=== PATIENT | male | born 1965 | race American Indian/Alaskan Native ===

== ENCOUNTER 2021-02-10 22:15 | Observation (INO) | payer OTHER ==
--- NOTE | 2021-02-10 22:21 | Emergency Department Report ---
- General Chief complaint: Weakness Stated complaint: WEAKNESS PUI?: No Time Seen by Provider: 02/10/21 22:16 Source: patient, RN/MD, EMS, RN notes reviewed, old records reviewed Mode of arrival: Stretcher Limitations: Physical Limitation - History of Present Illness Initial comments: Patient is a 56-year-old male who presents emergency room with complaints of generalized weakness, difficulty walking, changes in balance, slurred speech. Patient states his symptoms started at 630. Patient states he was at a football game when this all started. Patient diagnosis diabetes. Patient states he went to the [place] urgent care and was being worked up there. Patient states he did a CAT scan and then he was sent over here. patient states he does not know what the results of the CAT scan are. Patient denies chest pain. Patient denies shortness of breath. Patient states his symptoms are continuous. Patient states he is becoming more more difficult to talk. Patient denies headache. Patient denies blurry vision. Patient denies fall. Patient denies trauma. Patient denies loss of consciousness. Patient denies syncope. Patient denies fever and chills. Patient denies neck stiffness. Patient denies recent travel. Patient denies recent international travel. Patient denies exposure to the novel coronavirus. Patient denies sick contacts. Patient denies fever and chills. Patient denies cough. Patient denies diarrhea. Patient denies coming in contact with anybody with symptoms of the novel coronavirus. Report received from EMS. EMS states that the patient was at the [facility] and they called for emergent transport because they did a CAT scan and they were not able to read it. Last known well time 6:30 PM [place]. Radio report received from EMS prior to arrival. A code stroke was called immediately after the radio report was received and prior to EMS arrival.. MD Complaint: generalized weakness, difficulty walking -: Sudden Location: generalized Severity: severe Quality: constant Consistency: constant Improves with: rest Worsens with: movement Associated Symptoms: denies: chest pain, confusion, dark stools, diaphoresis, dysuria, easy bruising, fever/chills, headaches, loss of appetite, nausea/vomiting, myalgias, rash, shortness of breath, syncope - Related Data Allergies Allergy/AdvReac Type Severity Reaction Status Date / Time No Known Allergies Allergy Verified 02/10/21 22:21 ED Review of Systems ROS: Stated complaint: WEAKNESS Other details as noted in HPI Constitutional: denies: chills, fever Eyes: denies: eye pain, eye discharge, vision change ENT: denies: ear pain, throat pain Respiratory: denies: cough, shortness of breath, wheezing Cardiovascular: denies: chest pain, palpitations Endocrine: no symptoms reported Gastrointestinal: denies: abdominal pain, nausea, diarrhea Genitourinary: denies: urgency, dysuria Musculoskeletal: denies: back pain, joint swelling, arthralgia Skin: denies: rash, lesions Neurological: as per HPI, weakness. denies: headache, paresthesias Psychiatric: denies: anxiety, depression Hematological/Lymphatic: denies: easy bleeding, easy bruising ED Past Medical Hx - Past Medical History Previous Medical History?: Yes Hx Hypertension: Yes Hx Diabetes: Yes Hx GERD: Yes Hx Seizures: Yes Additional medical history: History of alcohol abuse but in remission, esophageal varices, gallstones, history of GI bleed, hyperlipidemia, iron deficiency anemia, pancreatitis, seizure disorder, - Surgical History Past Surgical History?: No - Family History Family history: no significant - Social History Smoking Status: Never Smoker Substance Use Type: None ED Physical Exam - General Limitations: Physical Limitation General appearance: alert, in no apparent distress - Head Head exam: Present: atraumatic, normocephalic - Eye Eye exam: Present: normal appearance, PERRL Pupils: Present: normal accommodation - ENT ENT exam: Present: mucous membranes moist - Neck Neck exam: Present: normal inspection - Respiratory Respiratory exam: Present: normal lung sounds bilaterally. Absent: respiratory distress, wheezes, rales - Cardiovascular Cardiovascular Exam: Present: regular rate, normal rhythm. Absent: systolic murmur, diastolic murmur, rubs, gallop - GI/Abdominal GI/Abdominal exam: Present: soft, normal bowel sounds - Rectal Rectal exam: Present: deferred - Extremities Exam Extremities exam: Present: normal inspection - Back Exam Back exam: Present: normal inspection - Neurological Exam Neurological exam: Present: alert, oriented X3 - Psychiatric Psychiatric exam: Present: normal affect, normal mood - Skin Skin exam: Present: warm, dry, intact, normal color. Absent: rash - Assessment Assessment Interval: Baseline - Level of Consciousness 1a. Level of Consciousness: alert/keenly responsive - LOC Questions 1b. LOC Questions: answers both correctly - LOC Command 1c. LOC Commands: performs tasks correctly - Best Gaze 2. Best Gaze: normal - Visual 3. Visual: no visual loss - Facial Palsy 4. Facial Palsy: minor paralysis - Motor Arm 5a. Motor Arm Left: no drift 5b. Motor Arm Right: no drift - Motor Leg 6a. Motor Leg Left: drift 6b. Motor Leg Right: drift - Limb Ataxia 7. Limb Ataxia: absent - Sensory 8. Sensory: normal - Best Language 9. Best Language: no aphasia - Dysarthria 10. Dysarthria: mild/moderate dysarthria - Extinction and Inattention 11. Extinction/Inattention: no abnormality - Scoring Total Score: 4 Stroke Severity: Minor Stroke ED Course Vital Signs 02/10/21 02/10/21 02/10/21 22:21 22:46 23:00 Temperature 97.8 F Pulse Rate 77 73 72 Respiratory 18 17 14 Rate Blood Pressure 139/87 134/83 Blood Pressure 137/91 [Left] O2 Sat by Pulse 100 100 98 Oximetry 02/10/21 02/10/21 02/10/21 23:16 23:30 23:45 Temperature Pulse Rate 72 71 Respiratory 13 14 16 Rate Blood Pressure 124/79 119/77 Blood Pressure [Left] O2 Sat by Pulse 99 100 100 Oximetry 02/10/21 02/11/21 02/11/21 23:46 00:00 00:16 Temperature Pulse Rate 73 73 70 Respiratory 16 12 13 Rate Blood Pressure 116/71 112/71 119/75 Blood Pressure [Left] O2 Sat by Pulse 100 100 100 Oximetry 02/11/21 02/11/21 02/11/21 00:30 00:46 01:00 Temperature Pulse Rate 72 82 72 Respiratory 15 25 H 18 Rate Blood Pressure 120/73 134/78 133/105 Blood Pressure [Left] O2 Sat by Pulse 100 99 100 Oximetry 02/11/21 02/11/21 02/11/21 01:16 01:30 01:46 Temperature Pulse Rate 71 71 72 Respiratory 14 14 16 Rate Blood Pressure 135/88 134/82 139/82 Blood Pressure [Left] O2 Sat by Pulse 99 100 100 Oximetry 02/11/21 02/11/21 02/11/21 02:00 02:16 02:30 Temperature Pulse Rate 72 71 71 Respiratory 16 13 12 Rate Blood Pressure 139/87 135/82 132/81 Blood Pressure [Left] O2 Sat by Pulse 100 100 100 Oximetry 02/11/21 02/11/21 02/11/21 02:46 03:00 03:16 Temperature Pulse Rate 70 73 72 Respiratory 12 12 12 Rate Blood Pressure 126/82 128/80 123/77 Blood Pressure [Left] O2 Sat by Pulse 100 100 100 Oximetry - Reevaluation(s) Reevaluation #1: No change in neurologic status. Patient vital signs are reassuring. 02/11/21 00:01 Reevaluation #2: I discussed all results with patient. I discussed plan of care with patient. Patient agrees with plan of care and admission. Patient to be admitted to the hospitalist service. 02/11/21 00:54 - Consultations Consultation #1: I discussed the case with neurology and neurology recommends no TPA. Neurology recommends admission for further stroke work-up and a CTA in the ER. 02/10/21 22:31 Consultation #2: Discussed case with [place] physician, Dr. Mario. Dr. Mario wants the patient admitted here. 02/11/21 00:50 Consultation #3: Hospitalist consulted for admission. Hospitalist to admit patient. 02/11/21 00:53 ED Medical Decision Making - Lab Data Result diagrams: 02/10/21 22:37 02/10/21 22:37 - EKG Data -: EKG Interpreted by [place] EKG shows normal: sinus rhythm, axis, intervals, QRS complexes, ST-T waves Rate: normal - Radiology Data Radiology results: report reviewed, image reviewed CT head/brain wo con INDICATION / CLINICAL INFORMATION: Stroke symptoms. TECHNIQUE: Axial CT imaging of brain was obtained without contrast. Coronal and sagittal reformatted imaging obtained and reviewed. All CT scans at this location are performed using CT dose reduction for ALARA by means of automated exposure control. COMPARISON: None available. FINDINGS: No intracranial hemorrhage, mass, or midline shift is noted. No extra-axial fluid collection or suggestion of acute territorial infarction. Ventricular system and basilar cisterns are unremarkable. No evidence of acute ischemia at this time. Visualized paranasal sinuses and mastoid air cells are well aerated and clear. No acute calvarial abnormality noted. IMPRESSION: 1. No acute intracranial abnormality at this time. Please note that a negative CT does not exclude the possibility of acute CVA and clinical correlation is recommended. CTA HEAD AND NECK WITH CONTRAST HISTORY: Stroke symptoms COMPARISON: None. TECHNIQUE: All CT scans at this location are performed using CT dose reduction for ALARA by means of automated exposure control.. 3-D/MIP reformats postprocessed. Percentage stenosis is determined by direct quantitative measurements of diseased internal carotid artery diameter compared with normal distal internal carotid artery reference segments or by criteria similar to NASCET where applicable. CONTRAST: 100 ml of Omnipaque 350 FINDINGS: CT HEAD: BRAIN / INTRACRANIAL CONTENTS: No acute hemorrhage, mass effect, midline shift, or hydrocephalus. No appreciable acute large territorial or lacunar infarct. ORBITS: No significant abnormality of visualized orbits. SINUSES / MASTOIDS: No significant abnormality of visualized sinuses and mastoid air cells. CTA HEAD: Intracranial vertebral arteries: No significant abnormality. Basilar artery: No significant abnormality. Posterior cerebral arteries: No significant abnormality. Intracranial internal carotid arteries: No significant abnormality. Anterior cerebral arteries: No significant abnormality. Middle cerebral arteries: No significant abnormality. Dural venous sinuses:Not optimally opacified. No significant abnormality. CTA NECK: Aortic arch: No significant abnormality. Cervical vertebral arteries: No significant abnormality. Common carotid arteries: No significant abnormality. Cervical internal carotid arteries: Minimal atherosclerotic plaque without si gnificant stenosis. Additional findings: None. IMPRESSION: 1. No significant stenosis or large vessel occlusion in the neck or intracranial arteries. - Medical Decision Making Patient is a 56-year-old male who presents emergency room with complaints of weakness, slurred speech balance issues. Patient's last known well time was 6:30 PM. Patient had a code stroke initiated prior to arrival. Report received from EMS over the EMS radio and then in person once the EMS arrived. Patient immediately taken to CT scan for CT scan of the head. Patient had a CTA of the head neck immediately. Neurology consulted early. Neurology recommendations were received. Neurology not recommend TPA but recommends a stroke work-up as an inpatient. Patient's CT of the head and a CTA of the head and neck were negative for acute findings. No large vessel occlusions noted. Patient had a EKG which was normal sinus rhythm. I personally reviewed the EKG. I also reviewed the patient's chart that accompany him from the [place] facility. I discussed the case with [place] physician and they recommend admission here. Patient admitted to the hospital service for further evaluation treatment. Critical care time documented due to the multiple reassessments, prolonged time at the bedside, interpretation of diagnostics and labs. - Differential Diagnosis CVA, weakness, electrolyte imbalance, encephalopathy, Critical Care Time: Yes Critical care time in (mins) excluding proc time.: 35 Critical care attestation.: If time is entered above; I have spent that time in minutes in the direct care of this critically ill patient, excluding procedure time. Critical Care Time: 35 minutes ED Disposition Clinical Impression: Slurred speech, Dysarthria, Weakness, Unsteady gait, Alteration in speech, Abnormal blood chemistry Disposition: ADMITTED INPATIENT Is pt being admited?: Yes Does the pt Need Aspirin: No Condition: Critical Referrals: EDDIE MORGAN [Other] - 3-5 Days Time of Disposition: 00:56
--- NOTE | 2021-02-10 22:29 | Emergency Department Report ---
Blank Doc - Documentation Documentation: [facility] Consult Note # Demographics Consult Type: Acute Stroke Level 1 (0-4.5 hrs) Patient Location: Emergency Room First Name: Francisco Last Name: Symone Date of : 1965 Age: 56 Gender: Male Facility: [facility] Time of Initial Page ( Time): 02/10/2021, 22:18 Time of Return Call ( Time): 02/10/2021, 22:18 # HPI History: 56yo M was at a football came, developed slurred speech and generalized weakness. went to a [place] facility and got a CT but results are not known. # Scores Time of exam and NIHSS (): 02/10/2021, 22:20 Level of Consciousness 1a: [0] = Alert; keenly responsive LOC Questions 1b: [0] = Answers both questions correctly LOC Commands 1c: [0] = Performs both tasks correctly Best Gaze 2: [0] = Normal Visual 3: [0] = No visual loss Facial Palsy 4: [0] = Normal symmetrical movements Motor Arm Left 5a: [1] = Drift Motor Arm Right 5b: [1] = Drift Motor Leg Left 6a: [1] = Drift Motor Leg Right 6b: [1] = Drift Limb Ataxia 7: [0] = Absent Sensory 8: [0] = Normal Best Language 9: [0] = No aphasia Dysarthria 10: [1] = Awmy-vm-xwuaybyh dysarthria Extinction and Inattention 11: [0] = No abnormality NIHSS Total: 5 # Exam Mental Status: psychomotor slowing # Assessment Impression: Stroke Mimic # Plan Thrombolytic/Intervention: NOT IV Thrombolysis or IA Intervention candidate Thrombolytic/Intraarterial Exclusion: IV thrombolytic and IA intervention considered but not recommended as this patient's symptoms are not clinically consistent with an assumed diagnosis of stroke Other: I have discussed my recommendations with the referring provider # Logistics Telemedicine: Interactive 2 way audio and visual telecommunication technology was utilized during this visit
--- NOTE | 2021-02-10 22:41 | Cat Scan Report ---
CT head/brain wo con INDICATION / CLINICAL INFORMATION: Stroke symptoms. TECHNIQUE: Axial CT imaging of brain was obtained without contrast. Coronal and sagittal reformatted imaging obt ained and reviewed. All CT scans at this location are performed using CT dose reduction for ALARA by means of automated exposure control. COMPARISON: None available. FINDINGS: No intracranial hemorrhage, mass, or midline shift is noted. No extra-axial fluid collection or sugge stion of acute territorial infarction. Ventricular system and basilar cisterns are unremarkable. No e vidence of acute ischemia at this time. Visualized paranasal sinuses and mastoid air cells are well aerated and clear. No acute calvarial abn ormality noted. IMPRESSION: 1. No acute intracranial abnormality at this time. Please note that a negative CT does not exclude th e possibility of acute CVA and clinical correlation is recommended. A negative CT report was given to Dr. Hanks via telephone by myself at 2134 hours BUSINESS [employer]JECT[employer] DEVELOPER Signer Name: Josie Alarcon MD Signed: 02/10/2021 10:37 PM Workstation Name: [id number]
--- NOTE | 2021-02-10 23:08 | Cat Scan Report ---
CTA HEAD AND NECK WITH CONTRAST HISTORY: Stroke symptoms COMPARISON: None. TECHNIQUE: All CT scans at this location are performed using CT dose reduction for ALARA by means of automated exposure control.. 3-D/MIP reformats postprocessed. Percentage stenosis is determined by d irect quantitative measurements of diseased internal carotid artery diameter compared with normal dis mike internal carotid artery reference segments or by criteria similar to NASCET where applicable. CONTRAST: 100 ml of Omnipaque 350 FINDINGS: CT HEAD: BRAIN / INTRACRANIAL CONTENTS: No acute hemorrhage, mass effect, midline shift, or hydrocephalus. No appreciable acute large territorial or lacunar infarct. ORBITS: No significant abnormality of visualized orbits. SINUSES / MASTOIDS: No significant abnormality of visualized sinuses and mastoid air cells. CTA HEAD: Intracranial vertebral arteries: No significant abnormality. Basilar artery: No significant abnormality. Posterior cerebral arteries: No significant abnormality. Intracranial internal carotid arteries: No significant abnormality. Anterior cerebral arteries: No significant abnormality. Middle cerebral arteries: No significant abnormality. Dural venous sinuses:Not optimally opacified. No significant abnormality. CTA NECK: Aortic arch: No significant abnormality. Cervical vertebral arteries: No significant abnormality. Common carotid arteries: No significant abnormality. Cervical internal carotid arteries: Minimal atherosclerotic plaque without significant stenosis. Additional findings: None. IMPRESSION: 1. No significant stenosis or large vessel occlusion in the neck or intracranial arteries. Signer Name: Justice Soares MD Signed: 02/10/2021 11:04 PM Workstation Name: [id number]
[2021-02-10 23:29] LABS: Basophils % (Auto) 0.9 % (0.0-1.8); Eosinophils # (Auto) 0.1 K/mm3 (0.0-0.4); Eosinophils % (Auto) 1.8 % (0.0-4.3); Hematocrit 39.1 % (35.5-45.6); Hemoglobin 13.3 gm/dl (11.8-15.2); Lymphocytes # (Auto) 1.2 K/mm3 (1.2-5.4); Lymphocytes % (Auto) 32.6 % (13.4-35.0); Mean Corpuscular HGB Conc 34 % (32-34); Mean Corpuscular Volume 92 fl (84-94); Monocytes # (Auto) 0.5 K/mm3 (0.0-0.8); Monocytes % (Auto) 14.1 % (0.0-7.3); Platelet Count 135 K/mm3 (140-440); Red Blood Count 4.23 M/mm3 (3.65-5.03); Red Cell Distribution Width 15.3 % (13.2-15.2)
[2021-02-10 23:36] LABS: Creatine Kinase MB 1.9 ng/mL (0.0-4.0)
[2021-02-10 23:38] LABS: Alanine Aminotransferase 55 units/L (7-56); Albumin 3.5 g/dL (3.9-5); Blood Urea Nitrogen 5 mg/dL (9-20); Calcium 8.6 mg/dL (8.4-10.2); Hemolysis Index 260
[2021-02-10 23:45] LABS: BUN/Creatinine Ratio 10
[2021-02-10 23:47] LABS: INR 1.38 (0.87-1.13)
[2021-02-10 23:48] LABS: Partial Thromboplastin Time 35.7 Sec. (24.2-36.6); Thrombin Time 15.4 Sec. (15.1-19.6)
[2021-02-11 01:55] LABS: Bacteria,Urine 1+ /HPF (Negative); Bilirubin,Urine NEG (Negative); Blood,Urine NEG (Negative); Color,Urine Yellow (Yellow); Mucus,Urine FEW /HPF; Protein,Urine <15 mg/dL mg/dL (Negative)
--- NOTE | 2021-02-11 01:55 | History and Physical Report ---
History of Present Illness Date of examination: 02/11/21 Date of admission: 02/11/21 Chief complaint: Weakness History of present illness: This is a 56-year-old male who is seen in ED at bedside. He presents to emergency room with complaints of generalized weakness, difficulty walking, changes in balance, slurred speech. Patient states he was at a football game whe n this all started. Patient has past medical hx of hypertension and diabetes. Patient states he went to the [place] urgent care and was being worked up there. Patient states he did a CAT scan and then he was sent over here. patient states he does not know what the results of the CAT scan are. Patient denies chest pain. Patient denies shortness of breath. patient appears to have low speech and he said it is becoming more difficult to talk. He denies chest pain, shortness of breath, tobacco use, alcohol use and illicit drug use. Past History Past Medical History: diabetes, hypertension Past Surgical History: Other Social history: full code. denies: smoking, alcohol abuse, prescription drug abuse, IV drug use Family history: diabetes, hypertension Medications and Allergies Allergies Allergy/AdvReac Type Severity Reaction Status Date / Time No Known Allergies Allergy Verified 02/10/21 22:21 Home Medications Medication Instructions Recorded Confirmed Last Taken Type Amoxicillin/K Clav Tab [Augmentin 1 each PO BID 02/11/21 02/11/21 Unknown History 500 MG TAB] Insulin NPH Human Isophane 12 unit SQ BID 02/11/21 02/11/21 Unknown History [Humulin N] Insulin Regular, Human [HumuLIN R] 1,000 unit SQ ACHS 02/11/21 02/11/21 Unknown History Neomycin 500 mg PO BID 02/11/21 02/11/21 Unknown History levETIRAcetam [Keppra TAB] 500 mg PO BID 02/11/21 02/11/21 Unknown History lisinopriL [Lisinopril] 10 mg PO QDAY 02/11/21 02/11/21 Unknown History Review of Systems Constitutional: fatigue, weakness Ears, nose, mouth and throat: no epistaxis, no bleeding gums Cardiovascular: syncope, high blood pressure Respiratory: no congestion, no wheezing Gastrointestinal: no BRBPR, no melena Rectal: no itching, no hemorrhoids Musculoskeletal: muscle weakness Integumentary: dryness Neurological: weakness, syncope, lack of coordination, change in speech, balance difficulties, no head injury, no change in mentation, no confusion Psychiatric: no suicidal ideation, no disorientation, no anhedonia Endocrine: high blood sugars Hematologic/Lymphatic: no easy bruising, no easy bleeding, no lymphadenopathy, no lymphedema Allergic/Immunologic: no urticaria Exam - Constitutional Vitals: Temp Pulse Resp BP Pulse Ox 97.8 F 72 15 120/73 100 02/10/21 22:21 02/11/21 00:30 02/11/21 00:30 02/11/21 00:30 02/11/21 00:30 General appearance: Present: mild distress, well-nourished - EENT Eyes: Present: PERRL ENT: hearing intact, clear oral mucosa - Neck Neck: Present: supple, normal ROM - Respiratory Respiratory effort: normal Respiratory: bilateral: CTA - Cardiovascular Heart Sounds: Present: S1 & S2. Absent: rub, click - Extremities Extremities: pulses symmetrical, No edema Peripheral Pulses: within normal limits - Abdominal General gastrointestinal: Present: soft, non-tender, non-distended, normal bowel sounds Male genitourinary: Present: normal - Integumentary Integumentary: Present: clear, warm, dry - Musculoskeletal Musculoskeletal: strength equal bilaterally, generalized weakness - Psychiatric Psychiatric: appropriate mood/affect, intact judgment & insight, cooperative - Neurologic Neurologic: CNII-XII intact, moves all extremities - Allied Health Allied health notes reviewed: nursing, PT, OT HEART Score - HEART Score Troponin: Troponin T < 0.010 ng/mL (0.00-0.029) 02/10/21 22:37 Results - Labs CBC & Chem 7: 02/10/21 22:37 02/10/21 22:37 Labs: Abnormal lab results 02/10/21 02/10/21 02/10/21 Range/Units 22:37 22:37 22:37 WBC 3.6 L (4.5-11.0) K/mm3 RDW 15.3 H (13.2-15.2) % Plt Count 135 L (140-440) K/mm3 Rock % (Auto) 14.1 H (0.0-7.3) % PT 17.5 H (12.2-14.9) Sec. INR 1.38 H (0.87-1.13) Sodium 133 L (137-145) mmol/L Chloride 96.7 L (98-107) mmol/L BUN 5 L (9-20) mg/dL Creatinine 0.5 L (0.8-1.3) mg/dL Glucose 204 H (75-100) mg/dL Total Bilirubin 2.20 H (0.1-1.2) mg/dL AST 97 H (5-40) units/L Alkaline Phosphatase 180 H (35-129) units/L Total Creatine Kinase 204 H (55-170) units/L Total Protein 8.3 H (6.3-8.2) g/dL Albumin 3.5 L (3.9-5) g/dL Assessment and Plan - Patient Problems (1) Hypertension Current Visit: Yes Status: Acute Plan to address problem: Minotor blood pressure Resume BP med PRN hydralazine (2) Diabetes Current Visit: Yes Status: Acute Plan to address problem: Monitor blood sugar with SSI Check HGA1c Resume home antihyperglycermic (3) TIA (transient ischemic attack) Current Visit: Yes Status: Acute Plan to address problem: CT of the neck, ct of head-done no acute finding Check ECHO (4) Weakness Current Visit: Yes Status: Acute Plan to address problem: ? cause-r/o CVA Patient came with generalized weakness, difficulty walking, changes in balance, slurred speech CT of the head and CTA neck with no acute finding MRI-result pending Neurologist consult (5) Alteration in speech Current Visit: Yes Status: Acute Plan to address problem: Patients speech slow patient reports this is new R/O CVA CT head is negative. MRI ordered. (6) Hyponatremia Current Visit: Yes Status: Acute Plan to address problem: Likely 2/2 to dehydration patient denies alcohol use Gently IV Hydration with normal saline (7) Thrombocytopenia Current Visit: Yes Status: Acute Plan to address problem: Unknown cause-alcohol use/viral infection Bleeding precautions Monitor platelet level (8) Elevated INR Current Visit: Yes Status: Acute Plan to address problem: ? cause patient not on anticoagulation therapy Hold anticoagulant Patient denies alcohol use Will check hepatic profile (9) DVT prophylaxis Current Visit: Yes Status: Acute Plan to address problem: SCD
[2021-02-11] MEDS ORDERED: SENNOSIDES 8.6 MG TAB PO PRN (02:17)
[2021-02-11] MEDS ORDERED: oxyCODONE /ACETAMINOPHEN 5-325MG TAB PO PRN ×2 (02:17→02:24)
[2021-02-11] MEDS ORDERED: MORPHINE 4 MG/1 ML INJ IV PRN (02:17)
[2021-02-11] MEDS ORDERED: ONDANSETRON 4 MG/2 ML INJ IV PRN ×2 (02:17→02:24)
[2021-02-11] MEDS ORDERED: METOCLOPRAMIDE 10 MG/2 ML INJ IV PRN (02:17)
[2021-02-11] MEDS ORDERED: ALUM-MAG HYDROXIDE-SIMETHICONE 200-200-20MG/5ML ORAL LIQD 30 ML PO PRN (02:17)
[2021-02-11] MEDS ORDERED: NALOXONE 0.4 MG/1 ML INJ IV PRN (02:17)
[2021-02-11] MEDS ORDERED: MAGNESIUM HYDROXIDE (MOM) ORAL LIQD UDC PO PRN (02:17)
[2021-02-11] MEDS ORDERED: MORPHINE 2 MG/1 ML INJ IV PRN ×2 (02:17→02:24)
[2021-02-11] MEDS ORDERED: ACETAMINOPHEN 325 MG TAB PO PRN (02:24)
[2021-02-11] MEDS ORDERED: hydrALAZINE 20 MG/1 ML INJ IV PRN (02:55)
[2021-02-11 04:30] LABS: Hepatitis C Virus Antibody Non-Reactive (NonReactive)
[2021-02-11 05:23] LABS: Hepatitis B Surface Antigen Nonreactive (Negative)
[2021-02-11] MEDS: INSULIN NPH, HUMAN 100 UNIT/1 ML SUB-Q SCH ×2 (08:23→17:59)
--- NOTE | 2021-02-11 08:57 | Consultation ---
History of Present Illness Consult date: 02/11/21 Reason for Consult: Weakness generalized acute History of present illness: Weakness History of present illness: This is a 56-year-old male who is seen in ED at bedside. He presents to emergency room with complaints of generalized weakness, difficulty walking according to pt. for the last 3 weeks he noticed at time unsteady gait intermittent ? , changes in balance, slurred speech. Patient states he was at a football game when this all started. Patient has past medical hx of hypertension and diabetes. Patient states he went to the [facility] urgent [facility] and was being worked up there. Patient states he did a CAT scan and then he was sent over here. patient states he does not know what the results of the CAT scan are. Patient denies chest pain. Patient denies shortness of breath. patient appears to have low speech and he said it is becoming more difficult to talk. He denies chest pain, shortness of breath, tobacco use, alcohol use and illicit drug use. Past History Past Medical History: diabetes, hypertension Past Surgical History: Other Social history: full code. denies: smoking, alcohol abuse, prescription drug abuse, IV drug use Family history: diabetes, hypertension Medications and Allergies Allergies Allergy/AdvReac Type Severity Reaction Status Date / Time No Known Allergies Allergy Verified 02/10/21 22:21 Home Medications Medication Instructions Recorded Confirmed Last Taken Type Amoxicillin/K Clav Tab [Augmentin 1 each PO BID 02/11/21 02/11/21 Unknown History 500 MG TAB] Insulin NPH Human Isophane 12 unit SQ BID 02/11/21 02/11/21 Unknown History [Humulin N] Insulin Regular, Human [HumuLIN R] 1,000 unit SQ ACHS 02/11/21 02/11/21 Unknown History Neomycin 500 mg PO BID 02/11/21 02/11/21 Unknown History levETIRAcetam [Keppra TAB] 500 mg PO BID 02/11/21 02/11/21 Unknown History lisinopriL [Lisinopril] 10 mg PO QDAY 02/11/21 02/11/21 Unknown History Review of Systems Constitutional: fatigue, weakness Ears, nose, mouth and throat: no epistaxis, no bleeding gums Cardiovascular: syncope, high blood pressure Respiratory: no congestion, no wheezing Gastrointestinal: no BRBPR, no melena Rectal: no itching, no hemorrhoids Musculoskeletal: muscle weakness Integumentary: dryness Neurological: weakness, syncope, lack of coordination, change in speech, balance difficulties, no head injury, no change in mentation, no confusion Psychiatric: no suicidal ideation, no disorientation, no anhedonia Endocrine: high blood sugars Hematologic/Lymphatic: no easy bruising, no easy bleeding, no lymphadenopathy, no lymphedema Allergic/Immunologic: no urticaria Past History Past Medical History: diabetes, hypertension Past Surgical History: Other Social history: full code. denies: smoking, alcohol abuse, prescription drug abuse, IV drug use Family history: diabetes, hypertension Medications and Allergies Allergies Allergy/AdvReac Type Severity Reaction Status Date / Time No Known Allergies Allergy Verified 02/10/21 22:21 Home Medications Medication Instructions Recorded Confirmed Last Taken Type Amoxicillin/K Clav Tab [Augmentin 1 each PO BID 02/11/21 02/11/21 Unknown History 500 MG TAB] Insulin NPH Human [place] 12 unit SQ BID 02/11/21 02/11/21 Unknown History [Humulin N] Insulin Regular, Human [HumuLIN R] 1,000 unit SQ ACHS 02/11/21 02/11/21 Unknown History Neomycin 500 mg PO BID 02/11/21 02/11/21 Unknown History levETIRAcetam [Keppra TAB] 500 mg PO BID 02/11/21 02/11/21 Unknown History lisinopriL [Lisinopril] 10 mg PO QDAY 02/11/21 02/11/21 Unknown History Active Meds: Active Medications Acetaminophen (Acetaminophen 325 Mg Tab) 650 mg PO Q4H PRN PRN Reason: Pain MILD(1-3)/Fever >100.5/HUYNH Al Hydrox/Mg Hydrox/Simethicone (Alum-Mag Hydroxide-Simethicone [id number]/5ml Oral Liqd 30 Ml) 30 ml PO Q4H PRN PRN Reason: Indigestion Famotidine (Famotidine 20 Mg/2 Ml Inj) 20 mg IV BID LANIE Hydralazine HCl (Hydralazine 20 Mg/1 Ml Inj) 5 mg IV Q4HR PRN PRN Reason: Hypertension Sodium Chloride (Nacl 0.9% 1000 Ml) 1,000 mls @ 75 mls/hr IV DIRECT LANIE Insulin Human Lispro (Insulin Lispro 100 Unit/Ml) 0 unit SUB-Q ACHS LANIE; Protocol Insulin Human NPH (Insulin Nph, Human 100 Unit/1 Ml) 12 unit SUB-Q BIDDIAB [facility] Last Admin: 02/11/21 08:23 Dose: 12 unit Documented by: Levetiracetam (Levetiracetam 500 Mg Tab) 500 mg PO BID [facility] Lisinopril (Lisinopril 10 Mg Tab) 10 mg PO QDAY [facility] Magnesium Hydroxide (Magnesium Hydroxide (Mom) Oral Liqd Udc) 30 ml PO Q4H PRN PRN Reason: Constipation Metoclopramide HCl (Metoclopramide 10 Mg/2 Ml Inj) 10 mg IV Q6H PRN PRN Reason: Nausea And Vomiting Morphine Sulfate (Morphine 2 Mg/1 Ml Inj) 2 mg IV Q4H PRN PRN Reason: Pain, Moderate (4-6) Naloxone HCl (Naloxone 0.4 Mg/1 Ml Inj) 0.1 mg IV Q2MIN PRN PRN Reason: Res Rate </= 8 or 02 SAT < 92% Ondansetron HCl (Ondansetron 4 Mg/2 Ml Inj) 4 mg IV Q8H PRN PRN Reason: Nausea And Vomiting Oxycodone/Acetaminophen (Oxycodone /Acetaminophen 5-325mg Tab) 1 tab PO Q6H PRN PRN Reason: Pain, Moderate (4-6) Senna (Sennosides 8.6 Mg Tab) 8.6 mg PO Q12HR PRN PRN Reason: Constipation Sodium Chloride (Sodium Chloride 0.9% 10 Ml Flush Syringe) 10 ml IV PRN PRN PRN Reason: LINE FLUSH Sodium Chloride (Sodium Chloride 0.9% 10 Ml Flush Syringe) 10 ml IV BID [facility] Physical Examination - Vital Signs Vital Signs: Vital Signs Temp Pulse Resp BP Pulse Ox 97.8 F 77 18 137/91 100 02/10/21 22:21 02/10/21 22:21 02/10/21 22:21 02/10/21 22:21 02/10/21 22:21 - Constitutional General appearance: comfortable - EENT EENT: Present: PERRL, mucous membranes moist - Respiratory Respiratory: Present: chest non-tender, lungs clear, rhonchi - Cardiovascular Cardiovascular: Present: regular rate, normal S1, normal S2 Extremities: Present: no peripheral edema bilatateraly, no clubbing, cyanosis - Gastrointestinal Gastrointestinal: Present: normoactive bowel sounds - Integumentary Integumentary: Present: normal - Neurologic Cranial nerve examination: anosmic, PERRL, EOMI, intact Speech examination: intact Sensorimotor examination: intact, other (slight decrese Pin sensation in feet , reflexes are supressed at knees bilateral, gait not able to do in ER.) Detailed motor examination: grossly full strength in - Level of Consciousness 1a. Level of Consciousness: alert/keenly responsive - LOC Questions 1b. LOC Questions: answers both correctly - LOC Command 1c. LOC Commands: performs tasks correctly - Best Gaze 2. Best Gaze: normal - Visual 3. Visual: no visual loss - Facial Palsy 4. Facial Palsy: normal symmetrical movement - Motor Arm 5a. Motor Arm Left: no drift 5b. Motor Arm Right: no drift - Motor Leg 6a. Motor Leg Left: no drift 6b. Motor Leg Right: no drift - Limb Ataxia 7. Limb Ataxia: absent - Sensory 8. Sensory: normal - Best Language 9. Best Language: no aphasia - Dysarthria 10. Dysarthria: normal - Extinction and Inattention 11. Extinction/Inattention: no abnormality - Scoring Total Score: 0 Stroke Severity: No Stroke Symptoms Results - Laboratory Findings CBC and BMP: 02/10/21 22:37 02/10/21 22:37 Abnormal Lab Findings: Abnormal Labs 02/10/21 02/10/21 02/10/21 22:37 22:37 22:37 WBC 3.6 L RDW 15.3 H Plt Count 135 L [place] % (Auto) 14.1 H PT 17.5 H INR 1.38 H Sodium 133 L Chloride 96.7 L BUN 5 L Creatinine 0.5 L Glucose 204 H POC Glucose Total Bilirubin 2.20 H AST 97 H Alkaline Phosphatase 180 H Total Creatine Kinase 204 H Total Protein 8.3 H Albumin 3.5 L 02/11/21 07:34 WBC RDW Plt Count [place] % (Auto) PT INR Sodium Chloride BUN Creatinine Glucose POC Glucose 175 H Total Bilirubin AST Alkaline Phosphatase Total Creatine Kinase Total Protein Albumin Assessment and Plan Assessment and Plan # Weakness and or unsteady gait intermittent for the last3 weeks as per pt. -denied associated symptoms as focal weakness , diplopia or swallowing difficulty -Ct brain , CTA braian and neck are unremarkable -MRI brain is unremarkable with no acute event is noted -check for orthostatic changes ?? # Hypertension -Minotor blood pressure -Resume BP med -PRN hydralazine # Diabetes -Monitor blood sugar with SSI -Check HGA1c -Resume home antihyperglycermic -Underlying neuropathy # Hyponatremia Likely 2/2 to dehydration patient denies alcohol use Gently IV Hydration with normal saline # Thrombocytopenia with Elevated INR -Unknown cause-alcohol use/viral infection -Bleeding precautions -Monitor platelet level -Will check hepatic profile is WNL # DVT prophylaxis -SCD PLAN 1- ESR,JUANITA,B12 ,A1C,UDS 2- Check for orthostatic changes 3- PT evaluate 4- Possibility of neuropathy acute can not be excluded need to exam pt. walking when possible? pt. hx and exam are inconsistent . will follow
[2021-02-11] MEDS: LISINOPRIL 10 MG TAB PO SCH (10:01)
[2021-02-11] MEDS: levETIRAcetam 500 MG TAB PO SCH ×2 (10:01→22:17)
[2021-02-11] MEDS: FAMOTIDINE 20 MG/2 ML INJ IV SCH ×2 (10:03→22:17)
--- NOTE | 2021-02-11 10:48 | Magnetic Resonance Report ---
MRI BRAIN WITHOUT CONTRAST INDICATION / CLINICAL INFORMATION: stroke. TECHNIQUE: Multiplanar, multisequence MR images of the brain were obtained. COMPARISON: Head CT on 02/10/2021 FINDINGS: BRAIN / INTRACRANIAL CONTENTS: No acute ischemia, acute hemorrhage, mass effect, midline shift, or hy drocephalus. No chronic infarct. There are mild areas of increased signal intensity on FLAIR imaging in the white matter of the cerebral hemispheres. Given the location and appearance, these most like ly reflect chronic small vessel ischemic change. CRANIOCERVICAL JUNCTION: No significant abnormality. VASCULAR FLOW-VOIDS: No significant abnormality. ORBITS: No significant abnormality of visualized orbits. SINUSES / MASTOIDS: No significant abnormality of visualized sinuses and mastoid air cells. ADDITIONAL FINDINGS: None. IMPRESSION: 1. No acute infarct or other acute intracranial abnormality. Signer Name: Justice Soares MD Signed: 02/11/2021 10:43 AM Workstation Name: [id number]
--- NOTE | 2021-02-11 13:11 | Event Note ---
Date: 02/11/21 The patient was seen and evaluated today. Patient was evaluated by neurology (appreciate recs). The patient underwent MRI brain that was found to be unremarkable. Further lab work-up is being performed. The patient is pending physical therapy evaluation that is most likely to occur on 02/13/2021. A diet will be started for the patient tonight.
[2021-02-11] MEDS: INSULIN LISPRO 100 UNIT/ML SUB-Q SCH ×3 (17:18→22:52)
[2021-02-11] MEDS: SODIUM CHLORIDE 0.9% 1000 ML 1,000 ML IV SCH (23:01)
[2021-02-12 06:01] LABS: Basophils % (Auto) 0.8 % (0.0-1.8); Eosinophils % (Auto) 1.6 % (0.0-4.3); Hematocrit 38.8 % (35.5-45.6); Hemoglobin 12.7 gm/dl (11.8-15.2); Lymphocytes # (Auto) 0.8 K/mm3 (1.2-5.4); Lymphocytes % (Auto) 32.4 % (13.4-35.0); Mean Corpuscular HGB Conc 33 % (32-34); Mean Corpuscular Volume 93 fl (84-94); Monocytes # (Auto) 0.4 K/mm3 (0.0-0.8); Monocytes % (Auto) 15.5 % (0.0-7.3); Red Blood Count 4.16 M/mm3 (3.65-5.03); Red Cell Distribution Width 14.9 % (13.2-15.2)
[2021-02-12 06:04] LABS: Platelet Count 89 K/mm3 (140-440)
[2021-02-12 06:23] LABS: Alanine Aminotransferase 38 units/L (7-56); Bilirubin,Direct 0.9 mg/dL (0-0.2); Blood Urea Nitrogen 5 mg/dL (9-20); Calcium 8.2 mg/dL (8.4-10.2); Chol/HDL Ratio 3.74 %; HDL Cholesterol 43 mg/dL (40-59); Hemolysis Index 17; LDL Cholesterol,Direct 96 mg/dL (50-130)
[2021-02-12 06:28] LABS: BUN/Creatinine Ratio 10
[2021-02-12] MEDS: INSULIN NPH, HUMAN 100 UNIT/1 ML SUB-Q SCH ×2 (09:27→17:05)
[2021-02-12] MEDS: INSULIN LISPRO 100 UNIT/ML SUB-Q SCH ×4 (09:29→21:53)
[2021-02-12] MEDS: levETIRAcetam 500 MG TAB PO SCH ×2 (09:38→21:29)
[2021-02-12] MEDS: FAMOTIDINE 20 MG/2 ML INJ IV SCH ×2 (09:39→21:29)
[2021-02-12] MEDS: LISINOPRIL 10 MG TAB PO SCH (09:40)
--- NOTE | 2021-02-12 11:17 | Progress Note ---
Assessment and Plan Assessment and Plan # Weakness and or unsteady gait intermittent for the last3 weeks as per pt. -denied associated symptoms as focal weakness , diplopia or swallowing difficulty -Ct brain , CTA braian and neck are unremarkable -MRI brain is unremarkable with no acute event is noted -check for orthostatic changes ?? # Hypertension -Minotor blood pressure -Resume BP med -PRN hydralazine # Diabetes -Monitor blood sugar with SSI -Check HGA1c#11.8 -Resume home antihyperglycermic -Underlying neuropathy # Hyponatremia Likely 2/2 to dehydration patient denies alcohol use Gently IV Hydration with normal saline # Thrombocytopenia with Elevated INR -Unknown cause-alcohol use/viral infection -Bleeding precautions -Monitor platelet level -Will check hepatic profile is WNL # DVT prophylaxis -SCD PLAN 1- ESR,JUANITA,B12 ,A1C,UDS 2- Check for orthostatic changes 3- PT evaluate 4- exam today showed no significant weakness or unsteady gait ,romberg sign is negative 5- Possibility of neuropathy and poorly controlled diabetes contribute to his finding can not be excluded 6- leukopenia and thrombocytopenia suggest Hematology follow up 7- better control of diabetes will sign off Subjective Date of service: 02/12/21 Principal diagnosis: weakness,unsteady gait Interval history: felling better,no seizure poor control of DM A1C#11.8 ESR#64 TSH is pending Objective - Vital Sign Vital Signs - 12hr 02/12/21 09:40 Pulse Rate 67 Blood Pressure 130/80 - General Apperance Constitutional: comfortable - EENT EENT: PERRL, mucous membranes moist - Respiratory Respiratory: chest non-tender, lungs clear, rhonchi - Cardiovascular Cardiovascular: regular rate, normal S1, normal S2 Extremities: no peripheral edema bilat, no clubbing, cyanosis - Gastrointestinal Gastrointestinal: normoactive bowel sounds - Integumentary Integumentary: normal - Neurologic Cranial nerve examination: PERRL, EOMI, intact Speech examination: intact Detailed motor examination: grossly full strength in - Laboratory Findings CBC and BMP: 02/12/21 05:26 02/12/21 05:26 Abnormal Lab Findings: Abnormal Labs 02/10/21 02/10/21 02/10/21 22:37 22:37 22:37 WBC 3.6 L RDW 15.3 H Plt Count 135 L [place] % (Auto) 14.1 H Lymph # (Auto) Seg Neutrophils # PT 17.5 H INR 1.38 H Sodium 133 L Potassium Chloride 96.7 L BUN 5 L Creatinine 0.5 L Glucose 204 H POC Glucose Hemoglobin A1c Calcium Total Bilirubin 2.20 H Direct Bilirubin AST 97 H Alkaline Phosphatase 180 H Total Creatine Kinase 204 H Total Protein 8.3 H Albumin 3.5 L Vitamin B12 02/11/21 02/11/21 02/11/21 07:34 12:01 17:35 WBC RDW Plt Count [place] % (Auto) Lymph # (Auto) Seg Neutrophils # PT INR Sodium Potassium Chloride BUN Creatinine Glucose POC Glucose 175 H 231 H Hemoglobin A1c Calcium Total Bilirubin Direct Bilirubin AST Alkaline Phosphatase Total Creatine Kinase Total Protein Albumin Vitamin B12 1172 H 02/11/21 02/12/21 02/12/21 22:46 05:26 05:26 WBC 2.5 L RDW Plt Count 89 L [place] % (Auto) 15.5 H Lymph # (Auto) 0.8 L Seg Neutrophils # 1.3 L PT INR Sodium 133 L Potassium 3.3 L D Chloride 97.6 L BUN 5 L Creatinine 0.5 L Glucose 293 H POC Glucose 296 H Hemoglobin A1c Calcium 8.2 L Total Bilirubin 2.10 H Direct Bilirubin 0.9 H AST 54 H Alkaline Phosphatase 159 H Total Creatine Kinase Total Protein Albumin 3.0 L Vitamin B12 02/12/21 02/12/21 05:26 09:26 WBC RDW Plt Count [place] % (Auto) Lymph # (Auto) Seg Neutrophils # PT INR Sodium Potassium Chloride BUN Creatinine Glucose POC Glucose 284 H Hemoglobin A1c 11.8 H Calcium Total Bilirubin Direct Bilirubin AST Alkaline Phosphatase Total Creatine Kinase Total Protein Albumin Vitamin B12
--- NOTE | 2021-02-12 14:16 | Progress Note ---
Assessment and Plan Assessment and plan: 56-year-old male who is seen in ED at bedside. He presents to emergency room with complaints of generalized weakness, difficulty walking, changes in balance, slurred speech who is being worked up for possible stroke. #Weakness #Unsteady gait #Possible TIA #Mild dysarthria -Neurology on board; appreciate recommendations -Negative imaging: CT head Noncon, CTA head and neck, MRI brain Noncon -TTE (02/11/2021) revealed mild diastolic dysfunction with EF of 55-60% -B12 within normal limits, ESR negative, hemoglobin A1c 11.8 -Patient's reported history and physical exam are inconsistent with radiological imaging. High likelihood of uncontrolled type 2 diabetes causing peripheral neuropathy. -Pending physical therapy evaluation to determine disposition for discharge -Continue to monitor #Hypertension -Currently normotensive -Continue home antihypertensive: Lisinopril 10 mg daily #Insulin-dependent type 2 diabetes mellitus #Diabetic counseling #Counseling on dietary changes #Counseling on exercise -Hemoglobin A1c 11.8 -Increased NPH from 12 units to 18 units twice daily; continue SSI -Counseled patient on importance of managing diabetes with dietary changes, incorporating exercise, and weight loss. Patient expressed understanding. -Time: +20 minutes #Hyponatremia -Na 133 -Likely secondary to decreased p.o. intake. Encouraging increase in p.o. intake. Patient expressed understanding -S/p hydration with normal saline on presentation -Continue to monitor #Hypokalemia -Potassium 3.3 -Repleted. Continue to monitor #Elevated transaminases #Elevated alkaline phosphatase -AST 54, alkaline phos 159 -Continue to monitor #Thrombocytopenia -Platelets 89 -Transfuse if platelets <50 K (if undergoing surgical procedure), less than 25K (with mucosal bleeding), <10K -Continue to monitor #Discharge planning -Pending physical therapy evaluation on 02/13/2021 (7) Thrombocytopenia Current Visit: Yes Status: Acute Plan to address problem: Unknown cause-alcohol use/viral infection Bleeding precautions Monitor platelet level (8) Elevated INR Current Visit: Yes Status: Acute Plan to address problem: ? cause patient not on anticoagulation therapy Hold anticoagulant Patient denies alcohol use Will check hepatic profile (9) DVT prophylaxis Current Visit: Yes Status: Acute Plan to address problem: SCD Disposition Plan: Pending physical therapy evaluation. Total Time Spent with Patient (Minutes): 40 History Interval history: No acute events overnight. Hospitalist Physical - Constitutional Vitals: Temp Pulse Resp BP Pulse Ox 98.0 F 71 18 126/78 100 02/12/21 11:11 02/12/21 11:11 02/12/21 11:11 02/12/21 11:11 02/12/21 11:11 General appearance: Present: no acute distress, well-nourished - EENT Eyes: Present: PERRL, EOM intact ENT: hearing intact, clear oral mucosa, dentition normal - Neck Neck: Present: supple, normal ROM - Respiratory Respiratory effort: normal - Cardiovascular Rhythm: regular Heart Sounds: Present: S1 & S2 - Extremities Extremities: no ischemia, pulses intact, pulses symmetrical, No edema, normal temperature, normal color Peripheral Pulses: within normal limits - Abdominal General gastrointestinal: soft, non-tender, non-distended, normal bowel sounds - Integumentary Integumentary: Present: clear, warm, dry - Psychiatric Psychiatric: appropriate mood/affect, intact judgment & insight, memory intact, cooperative - Neurologic Neurologic: CNII-XII intact, moves all extremities - Allied Health Allied health notes reviewed: nursing HEART Score - HEART Score Troponin: Troponin T < 0.010 ng/mL (0.00-0.029) 02/10/21 22:37 Results - Labs CBC & Chem 7: 02/12/21 05:26 02/12/21 05:26 Labs: Laboratory Last Values WBC 2.5 K/mm3 (4.5-11.0) L 02/12/21 05:26 RBC 4.16 M/mm3 (3.65-5.03) 02/12/21 05:26 Hgb 12.7 gm/dl (11.8-15.2) 02/12/21 05:26 Hct 38.8 % (35.5-45.6) 02/12/21 05:26 MCV 93 fl (84-94) 02/12/21 05:26 MCH 31 pg (28-32) 02/12/21 05:26 MCHC 33 % (32-34) 02/12/21 05:26 RDW 14.9 % (13.2-15.2) 02/12/21 05:26 Plt Count 89 K/mm3 (140-440) L 02/12/21 05:26 Lymph % (Auto) 32.4 % (13.4-35.0) 02/12/21 05:26 [place] % (Auto) 15.5 % (0.0-7.3) H 02/12/21 05:26 Eos % (Auto) 1.6 % (0.0-4.3) 02/12/21 05:26 Baso % (Auto) 0.8 % (0.0-1.8) 02/12/21 05:26 Lymph # (Auto) 0.8 K/mm3 (1.2-5.4) L 02/12/21 05:26 [place] # (Auto) 0.4 K/mm3 (0.0-0.8) 02/12/21 05:26 Eos # (Auto) 0.0 K/mm3 (0.0-0.4) 02/12/21 05:26 Baso # (Auto) 0.0 K/mm3 (0.0-0.1) 02/12/21 05:26 Seg Neutrophils % 49.7 % (40.0-70.0) 02/12/21 05:26 Seg Neutrophils # 1.3 K/mm3 (1.8-7.7) L 02/12/21 05:26 ESR 64 mm/Hr (0-20) 02/11/21 12:01 PT 17.5 Sec. (12.2-14.9) H 02/10/21 22:37 INR 1.38 (0.87-1.13) H 02/10/21 22:37 APTT 35.7 Sec. (24.2-36.6) 02/10/21 22:37 Thrombin Time 15.4 Sec. (15.1-19.6) 02/10/21 22:37 Sodium 133 mmol/L (137-145) L 02/12/21 05:26 Potassium 3.3 mmol/L (3.6-5.0) L D 02/12/21 05:26 Chloride 97.6 mmol/L (98-107) L 02/12/21 05:26 Carbon Dioxide 25 mmol/L (22-30) 02/12/21 05:26 Anion Gap 14 mmol/L 02/12/21 05:26 BUN 5 mg/dL (9-20) L 02/12/21 05:26 Creatinine 0.5 mg/dL (0.8-1.3) L 02/12/21 05:26 Estimated GFR > 60 ml/min 02/12/21 05:26 BUN/Creatinine Ratio 10 % 02/12/21 05:26 Glucose 293 mg/dL (75-100) H 02/12/21 05:26 POC Glucose 321 mg/dL (70-105) H 02/12/21 11:58 Hemoglobin A1c 11.8 % (4-6) H 02/12/21 05:26 Calcium 8.2 mg/dL (8.4-10.2) L 02/12/21 05:26 Phosphorus 3.30 mg/dL (2.5-4.5) 02/12/21 05:26 Magnesium 1.80 mg/dL (1.7-2.3) 02/12/21 05:26 Total Bilirubin 2.10 mg/dL (0.1-1.2) H 02/12/21 05:26 Direct Bilirubin 0.9 mg/dL (0-0.2) H 02/12/21 05:26 Indirect Bilirubin 1.2 mg/dL 02/12/21 05:26 AST 54 units/L (5-40) H 02/12/21 05:26 ALT 38 units/L (7-56) 02/12/21 05:26 Alkaline Phosphatase 159 units/L (35-129) H 02/12/21 05:26 Total Creatine Kinase 204 units/L (55-170) H 02/10/21 22:37 CK-MB (CK-2) 1.9 ng/mL (0.0-4.0) 02/10/21 22:37 CK-MB (CK-2) Rel Index 0.9 (0-4) 02/10/21 22:37 Troponin T < 0.010 ng/mL (0.00-0.029) 02/10/21 22:37 C-Reactive Protein 0.80 mg/dL (0.00-1.30) 02/11/21 03:20 Total Protein 7.3 g/dL (6.3-8.2) 02/12/21 05:26 Albumin 3.0 g/dL (3.9-5) L 02/12/21 05:26 Albumin/Globulin Ratio 0.7 % 02/12/21 05:26 Triglycerides 137 mg/dL (2-149) 02/12/21 05:26 Cholesterol 161 mg/dL (50-199) 02/12/21 05:26 LDL Cholesterol Direct 96 mg/dL (50-130) 02/12/21 05:26 HDL Cholesterol 43 mg/dL (40-59) 02/12/21 05:26 Cholesterol/HDL Ratio 3.74 % 02/12/21 05:26 Vitamin B12 1172 pg/mL (211-911) H 02/11/21 12:01 Urine Color Yellow (Yellow) 02/11/21 Unknown Urine Turbidity Clear (Clear) 02/11/21 Unknown Urine pH 6.0 (5.0-7.0) 02/11/21 Unknown Ur Specific [place] 1.029 (1.003-1.030) 02/11/21 Unknown Urine Protein <15 mg/dl mg/dL (Negative) 02/11/21 Unknown Urine Glucose (UA) 150 mg/dL (Negative) 02/11/21 Unknown Urine Ketones Neg mg/dL (Negative) 02/11/21 Unknown Urine Blood Neg (Negative) 02/11/21 Unknown Urine Nitrite Neg (Negative) 02/11/21 Unknown Urine Bilirubin Neg (Negative) 02/11/21 Unknown Urine Urobilinogen 4.0 mg/dL (<2.0) 02/11/21 Unknown Ur Leukocyte Esterase Neg (Negative) 02/11/21 Unknown Urine WBC (Auto) 3.0 /HPF (0.0-6.0) 02/11/21 Unknown Urine RBC (Auto) 5.0 /HPF (0.0-6.0) 02/11/21 Unknown Urine Bacteria (Auto) 1+ /HPF (Negative) 02/11/21 Unknown Urine Mucus Few /HPF 02/11/21 Unknown Plasma/Serum Alcohol < 0.01 % (0-0.07) 02/10/21 22:37 Hepatitis A IgM Ab Non-reactive (NonReactive) 02/11/21 03:20 Hep Bs Antigen Nonreactive (Negative) 02/11/21 03:20 Hep B Core IgM Ab Non-reactive (NonReactive) 02/11/21 03:20 Hepatitis C Antibody Non-reactive (NonReactive) 02/11/21 03:20 Jones/IV: Voiding Method Urinal Active Medications - Current Medications Current Medications: Generic Name Dose Route Start Last Admin Trade Name Freq PRN Reason Stop Dose Admin Acetaminophen 650 mg 02/11/21 02:24 Acetaminophen 325 Mg Tab PO Q4H PRN Pain MILD(1-3)/Fever >100.5/HUYNH Al Hydrox/Mg Hydrox/Simethicone 30 ml 02/11/21 02:17 Alum-Mag Hydroxide-Simethicone [id number]/5ml Oral Liqd 30 Ml PO Q4H PRN Indigestion Famotidine 20 mg 02/11/21 10:00 02/12/21 09:39 Famotidine 20 Mg/2 Ml Inj IV 20 mg BID LANIE Administration Hydralazine HCl 5 mg 02/11/21 02:55 Hydralazine 20 Mg/1 Ml Inj IV Q4HR PRN Hypertension Sodium Chloride 1,000 mls @ 75 mls/hr 02/11/21 02:30 02/11/21 23:01 Nacl 0.9% 1000 Ml IV 75 mls/hr DIRECT LANIE Administration Insulin Human Lispro 0 unit 02/11/21 07:30 02/12/21 12:23 Insulin Lispro 100 Unit/Ml SUB-Q 4 unit ACHS LANIE Administration Protocol Insulin Human NPH 18 unit 02/12/21 08:00 02/12/21 09:27 Insulin Nph, Human 100 Unit/1 Ml SUB-Q 18 unit BIDDIAB LANIE Administration Levetiracetam 500 mg 02/11/21 10:00 02/12/21 09:38 Levetiracetam 500 Mg Tab PO 500 mg BID LANIE Administration Lisinopril 10 mg 02/11/21 10:00 02/12/21 09:40 Lisinopril 10 Mg Tab PO 10 mg QDAY LANIE Administration Magnesium Hydroxide 30 ml 02/11/21 02:17 Magnesium Hydroxide (Mom) Oral Liqd Udc PO Q4H PRN Constipation Metoclopramide HCl 10 mg 02/11/21 02:17 Metoclopramide 10 Mg/2 Ml Inj IV Q6H PRN Nausea And Vomiting Morphine Sulfate 2 mg 02/11/21 02:24 Morphine 2 Mg/1 Ml Inj IV Q4H PRN Pain, Moderate (4-6) Naloxone HCl 0.1 mg 02/11/21 02:17 Naloxone 0.4 Mg/1 Ml Inj IV Q2MIN PRN Res Rate </= 8 or 02 SAT < 92% Ondansetron HCl 4 mg 02/11/21 02:17 Ondansetron 4 Mg/2 Ml Inj IV Q8H PRN Nausea And Vomiting Oxycodone/Acetaminophen 1 tab 02/11/21 02:17 02/11/21 23:08 Oxycodone /Acetaminophen 5-325mg Tab PO 1 tab Q6H PRN Administration Pain, Moderate (4-6) Senna 8.6 mg 02/11/21 02:17 Sennosides 8.6 Mg Tab PO Q12HR PRN Constipation Sodium Chloride 10 ml 02/11/21 02:17 Sodium Chloride 0.9% 10 Ml Flush Syringe IV PRN PRN LINE FLUSH Sodium Chloride 10 ml 02/11/21 10:00 02/12/21 09:40 Sodium Chloride 0.9% 10 Ml Flush Syringe IV 10 ml BID LANIE Administration
[2021-02-12] MEDS: SODIUM CHLORIDE 0.9% 1000 ML 1,000 ML IV SCH (18:25)
[2021-02-12 18:55] LABS: Amphetamine Screen,Urine Negative; Benzodiazepines Screen,Urine Negative; Cannabinoid Screen,Urine Negative; Cocaine Screen,Urine Negative; Methadone Screen,Urine Negative; Opiate Screen,Urine Negative
[2021-02-13] MEDS: SODIUM CHLORIDE 0.9% 1000 ML 1,000 ML IV SCH (05:51)
[2021-02-13 06:37] LABS: Hematocrit 39.7 % (35.5-45.6); Hemoglobin 13.4 gm/dl (11.8-15.2); Mean Corpuscular HGB Conc 34 % (32-34); Mean Corpuscular Volume 92 fl (84-94)
[2021-02-13 06:42] LABS: Platelet Count 76 K/mm3 (140-440)
[2021-02-13 06:58] LABS: Blood Urea Nitrogen 5 mg/dL (9-20); Calcium 8.5 mg/dL (8.4-10.2); Hemolysis Index 4
[2021-02-13 07:00] LABS: BUN/Creatinine Ratio 10
[2021-02-13] MEDS ORDERED: POTASSIUM CHLORIDE ER 20 MEQ TAB PO NR (08:00)
--- NOTE | 2021-02-13 10:52 | Electrocardiograph Report ---
[facility] Test Date: 2021-02-10 Test Time: 22:43:42 Pat Name: KRISTA VAIL Department: Room: A381 Gender: M [employer] Technician: JAMES : 1965 Requested By: MAYLIN LORENZO III Order Number: [id number] Reading MD: Christopher Sullivan Measurements Intervals Backus Rate: 72 P: 56 ME: 164 QRS: 17 QRSD: 89 T: -22 QT: 499 QTc: 548 Interpretive Statements Sinus rhythm Borderline T abnormalities, diffuse leads non specific st-t No previous ECG available for comparison Electronically Signed On 02-13-2021 10:51:52 EDT by Christopher Sullivan
[2021-02-13] MEDS: INSULIN LISPRO 100 UNIT/ML SUB-Q SCH ×2 (11:27→12:36)
[2021-02-13 11:50] LABS: Total Cells Counted 100
[2021-02-13 11:51] LABS: Platelet Estimate Consistent w Auto; RBC Morphology Normal
[2021-02-13] MEDS: levETIRAcetam 500 MG TAB PO SCH (12:34)
[2021-02-13] MEDS: LISINOPRIL 10 MG TAB PO SCH (12:34)
[2021-02-13] MEDS: FAMOTIDINE 20 MG/2 ML INJ IV SCH (12:35)
[2021-02-13] MEDS: INSULIN NPH, HUMAN 100 UNIT/1 ML SUB-Q SCH (12:44)
[2021-02-13 13:15] VITALS: BP 143/91
--- NOTE | 2021-02-13 13:49 | Discharge Summary ---
Providers - Providers Date of Admission: 02/11/21 04:40 Date of discharge: 02/13/21 Attending physician: MAGGIE MCBRIDE MD 02/11/21 02:18 Speech Therapy Evaluation and Treat [CONS] Routine Reason For Exam: swallow eval 02/11/21 02:30 Consult to Physician [CONS] Routine Comment: Consulting Provider: RAFI BEARDEN Physician Instructions: Reason For Exam: r/o cva 02/11/21 08:00 Physical Therapy Evaluation and Treat [CONS] Routine Comment: Reason For Exam: Evaluate in the setting of possible stroke Hospitalization Reason for admission: Concern for stroke Condition: Critical Pertinent studies: CT head Noncon, CTA head and neck, and MRI brain Procedures: TTE Hospital course: The patient is a 56-year-old male with past medical history of hypertension, insulin-dependent type 2 diabetes, tobacco dependence, and history of polysubstance abuse who presented for generalized weakness and difficulty with ambulation for approximately 3 weeks. The patient described having increased weakness as the day progressed. He denies any slurred speech, numbness, ting ling, or overall loss in function of any limbs. In the ED, the patient underwent radiological examination for possible stroke. The following images were negative: CT head Noncon, CTA head and neck, and MRI brain Noncon. Neurology was consulted and could not identify any specific etiology for his symptoms. It was presumed that uncontrolled diabetes could play a role leading to peripheral neuropathy. The patient was evaluated by physical therapy and deemed safe to go home. The patient was counseled about medication compliance, incorporating exercise, and dietary changes. He expressed understanding. Disposition: 01 HOME / SELF CARE / HOMELESS Final Discharge Diagnosis (Prints w/discharge instructions): Generalized weakness of unknown etiology; uncontrolled insulin-dependent type 2 diabetes Time spent for discharge: 40 Core Measure Documentation - Palliative Care Palliative Care/ Comfort Measures: Not Applicable - Core Measures Any of the following diagnoses?: none - VTE Discharge Requirements Deep Vein Thrombosis/Pulmonary Embolism Present on Admission: No Has pt received <5 days of overlap therapy or INR<2.0: No (Not indicated) Anticoagulant overlap therapy prescribed at discharge: No Contraindication No Overlap Therapy order at DC: Not Indicated - Acute HI Discharge Requirements Aspirin at discharge: No Reason for no aspirin on DC: Medical contraindication (Not indicated) ANDREW/ARB for LVSD if EF <40%: Yes Beta teetee at discharge: No Reason for no beta teetee on DC: Medical contraindication (Not indicated) Statin for LDL = or >100 mg/dl on DC: Not Applicable Reason for no statin on DC: Medical contraindication (Not indicated) - Heart Failure Discharge Requirements ANDREW/ARB for LVSD if EF <40%: Yes Reason for no ANDREW/ARB: Medical contraindication (Not indicated) Beta teetee at discharge: No Reason for no beta teetee on DC: Medical contraindication (Not indicated) - Stroke Discharge Requirements Statin for LDL = or >70 mg/dl on DC: Not Applicable Reason for no statin on DC: Not Indicated Anticoag for atrial fib/atrial flutter: Not Applicable Reason for no anticoag for AF/F on DC: Not Indicated Antithrombotic for ischemic stroke: No Reason for no antithrombotic on DC: Not Indicated Exam - Constitutional Vitals: Temp Pulse Resp BP Pulse Ox 98.1 F 91 H 18 143/91 100 02/13/21 11:09 02/13/21 11:09 02/13/21 11:09 02/13/21 11:09 02/13/21 11:09 General appearance: Present: no acute distress, well-nourished - EENT Eyes: Present: PERRL, EOM intact ENT: hearing intact, clear oral mucosa, dentition normal - Neck Neck: Present: supple, normal ROM - Respiratory Respiratory effort: normal - Cardiovascular Rhythm: regular Heart Sounds: Present: S1 & S2 - Extremities Extremities: no ischemia, pulses intact, pulses symmetrical, No edema, normal temperature, normal color Peripheral Pulses: within normal limits - Abdominal General gastrointestinal: Present: soft, non-tender, non-distended, normal bowel sounds Male genitourinary: Present: deferred - Rectal Rectal Exam: deferred - Integumentary Integumentary: Present: clear, warm, dry - Musculoskeletal Musculoskeletal: strength equal bilaterally - Psychiatric Psychiatric: appropriate mood/affect, intact judgment & insight, memory intact, cooperative - Neurologic Neurologic: CNII-XII intact, moves all extremities - Allied Health Allied health notes reviewed: nursing Plan Health Concerns: Patient should return back to the emergency room with any of the following occurs: Confusion, weakness, worsening dizziness, chest pain/pressure, shortness of breath, uncontrollable abdominal pain, inability to tolerate oral intake, or inability to produce urine. Assessment: Patient discharging home. Follow up with: EDDIE MORGAN [Other] - 3-5 Days
[2021-02-15 13:19] LABS: ANA Screen, IFA Negative (Negative)
== END 2021-02-13 15:15 | disposition home or self-care (01) ==
LOC: ED 22:15 → 4A 02-11 04:40 → 3A 02-11 19:41
PROVIDERS: ADMIT Hospitalist; ATTEND Student in an Organized Health Care Education/Training Program
DX: G45.9 Transient cerebral ischemic attack, unspecified (principal); I10 Essential (primary) hypertension; E11.9 Type 2 diabetes mellitus without complications; K21.9 Gastro-esophageal reflux disease without esophagitis; D69.6 Thrombocytopenia, unspecified; E87.1 Hypo-osmolality and hyponatremia; M10.9 Gout, unspecified; R56.9 Unspecified convulsions; R53.1 Weakness; R47.81 Slurred speech; R47.1 Dysarthria and anarthria; R29.705 NIHSS score 5; R79.89 Other specified abnormal findings of blood chemistry; R77.8 Other specified abnormalities of plasma proteins; R42 Dizziness and giddiness; R07.89 Other chest pain; Z79.4 Long term (current) use of insulin; Z79.899 Other long term (current) drug therapy; Z98.890 Other specified postprocedural states
CPT/HCPCS: 36415; 70450; 70496; 70498; 70551; 80048; 80053; 80061; 80074; 80076; 80307; 81001; 82550; 82553; 82607; 82962; 83036; 83735; 84100; 84443; 84484; 85025; 85610; 85652; 85670; 85730; 86038; 86140; 92523; 92610; 93005; 93306; 96361; 96372; 96374; 96376; 97162; 99291; G0378; J7030; Q9967; 80320; 85007; G0480; J1815